=== PATIENT | female | born 1955 | race African-American/Black ===

== ENCOUNTER → 2016-03-30 | Day surgery (SDC) | payer OTHER ==
[~2016-03-30] MED LIST: ADVIL200 M1 PO; ALBUTEROL17 GM INH; ANEXSIA 5/325 M1 TA1 PO; AUGMENTIN PO; AZATHIOPRINE50 M1 PO; AZULFIDINE ENT500 MG PO; AZULFIDINE PO; B-12500 MCG PO; BENTYL10 M1 PO; BENTYL10 MG; BENTYL10 MG PO; DIPHENHYDRAMINE25 M1 PO; HM COMPLETE WO1 EACH PO; IMURAN50 MG PO; LEVAQUIN PO; LISINOPRIL20 MG PO; NAPROXEN SODIU550 MG PO; OMEPRAZOLE40 M1 PO; ONDANSETRON HCL4 M1 PO; OXYCODONE-APAP1 EACH PO; PERCOCET 10/3251 TAB PO; PERCOCET10 PO; PREDNISONE10 MG PO; PRILOSEC40 MG PO; PROMETHAZINE D118 ML PO; SULFASALAZINE500 M1 PO; SULFASALAZINE500 M2 PO; VICODIN PO; [UNRECOGNIZED DRUG - OTHER] TOP
--- NOTE | ~2016-03-30 | OR ---
Unit #: [id number] #: [id number] Patient: DIGNA GLOVER [id number] [facility]. [place], [place] [address] [id number] O MR#: [id number] NAME: DIGNA GLOVER ROOM: Date of Procedure: 03/30/2016 Admission Date: 03/30/2016 Surgeon: Keith Lin M.D. : 1955 Attending Physician: Keith Lin M.D. Primary Care Physician: [facility] OPERATIVE REPORT PRIMARY CARE PHYSICIAN [facility]. PREOPERATIVE DIAGNOSES The patient has history of Crohn's colitis and has presented with a generalized abdominal pain. PROCEDURES PERFORMED 1. Colonoscopy and polypectomy. 2. Colonoscopy and biopsies. POSTOPERATIVE DIAGNOSES The overall changes are consistent with distal Crohn's colitis in remission. The patient had single sessile polyp in the sigmoid colon about 5 mm in size. This was removed using snare polypectomy. In addition, multiple biopsies were obtained from the right colon, transverse colon, descending, and sigmoid colon, and rectum. The rest of the mucosa other than the mucosa throughout was normal including the terminal ileum. The quality of the prep was excellent. There were some patchy redness in the sigmoid and rectosigmoid area and in the sigmoid colon related to previous episodes of Crohn's colitis. RECOMMENDATIONS The patient will be followed up in the office in 3 months' time. SEDATION USED MAC. DESCRIPTION OF PROCEDURE Following detailed explanation of potential risks and complications of a colonoscopy, namely perforation, bleeding, and complication related to sedation, the patient was brought to GI lab and laid in the left lateral decubitus position. A digital rectal examination was performed which was normal. Lubricated tip of the Olympus video colonoscope was inserted through the anus and advanced under direct vision. The scope was advanced past rectosigmoid into descending colon. Minimal erythema and patchy blotchy erythema was noted in this area. No diverticulosis was seen. The scope tip was then navigated all the way up to cecum with visualization of the ileocecal valve and the appendiceal orifice. Preparation was excellent with good visualization and photodocumentation was obtained. Last several inches of the terminal ileum also visualized after intubation of the ileocecal valve and appeared normal. Successive segments of the Unit #: [id number] #: [id number] Patient: DIGNA GLOVER colonic mucosa were examined upon withdrawal and appeared unremarkable except for the changes noted in the rectum and sigmoid colon earlier. Biopsies were obtained from the right colon and the cecum, from the transverse colon, as well as from the left colon, and descending colon, and sigmoid, as well as from the rectosigmoid and sent in separate bottles for histology to look for any evidence of dysplasia. A single sessile polyp about 5 mm in size was removed from the sigmoid colon using snare polypectomy. It was retrieved and sent for histology. The patient did not have any diverticulosis nor any hemorrhoids. The scope was then withdrawn and the patient returned to the recovery area. She tolerated the procedure without any postprocedure complications. Dictated by... Pop Guevara TD: 03/30/2016 16:29 JOB #: [id number] CC: [facility] OPERATIVE REPORT X Keith Lin MD X PROCEDURE OPERATIVE NOTE
== END | disposition home or self-care (01) ==
LOC: COPS 13:24
DX: K50.10 Crohn's disease of large intestine without complications (principal); D12.5 Benign neoplasm of sigmoid colon; K21.9 Gastro-esophageal reflux disease without esophagitis; I10 Essential (primary) hypertension; F17.200 Nicotine dependence, unspecified, uncomplicated; J31.0 Chronic rhinitis; Z87.440 Personal history of urinary (tract) infections; M19.90 Unspecified osteoarthritis, unspecified site
CPT/HCPCS: 88305; J2250

== ENCOUNTER → 2016-04-26 | Outpatient (CLI) | payer OTHER ==
--- NOTE | ~2016-04-26 | MR164 ---
[facility] A Service of [facility] & [facility] RADIOLOGY TEXT RESULTS PATIENT: DIGNA GLOVER LOCATION: [facility] : 55 UNIT #: [id number] AGE: [address]: Austyn Coffey MD SEX: F ORDER DR: [id number] [facility] [address] [place], [place] [address] [id number] O MR#: [id number] Acc #: [id number] NAME: DIGNA GLOVER : 1955 SEX: F STUDY DATE/TIME: 04/26/2016 17:41 UNIT: [facility] ROOM: STUDY DESCRIPTION: MR Shoulder Wo Contrast Lt Attending Physician: Austyn Coffey M.D. Referring Physician: Austyn Coffey M.D. Ordering Physician: uAstyn Coffey M.D. Primary Care Physician: Kiley Not Listed MRI CENTER REPORT This report is preliminary unless electronic signature is present. EXAM MRI left shoulder, 04/26/2016. COMPARISON Left shoulder radiographs, 02/14/2016. HISTORY Order states evaluate rotator cuff, pain. History sheet states left shoulder pain since the end of January 2016. Patient fell a couple of times and ran into a wall. Left shoulder surgery November 2015. Ran into a wall 1 1/2 years ago. Dislocated since January. FINDINGS No operative documentation is available. The exam is degraded with repeat and blade motion correction sequences performed. There is minimal AC joint hypertrophic arthrosis with minimal spurring and capsuloligamentous thickening. There is no evidence of superimposed recent injury. Coracoclavicular ligament complex appears intact. There is a hypertrophic pseudoarthrosis at the coracoclavicular interval of doubtful significance. There is mild supraspinatus and infraspinatus tendinosis without a tear. Teres minor tendon is intact. There is moderate subscapularis tendinosis without a full-thickness tear. Biceps anchor and biceps tendon are normal. There is slight posterior humeral subluxation relative to the central glenoid without dislocation. This may be accentuated by slight internal rotation of the humeral head and may be of no significance. There is mild glenohumeral arthrosis with areas of moderate grade humeral and glenoid chondromalacia, osteophyte formation, and subarticular cystic changes of STS. [facility] A Service of [facility] & [facility] RADIOLOGY TEXT RESULTS PATIENT: DIGNA GLOVER LOCATION: [facility] : 55 UNIT #: [id number] AGE: [address]: Austyn Coffey MD SEX: F ORDER DR: the inferior glenoid. There is a mild glenohumeral effusion without any sizable loose body. There is no marrow lesion or fracture. No muscle atrophy is noted. IMPRESSION 1. Rotator cuff tendinosis without a tear most prominently affects the subscapularis tendon. 2. Minimal AC joint arthrosis. 3. Fscz-if-wprdwqun glenohumeral arthrosis with a mild effusion. 4. Mild posterior humeral head subluxation relative to the central glenoid may be accentuated by slight humeral head internal rotation. There is no MR evidence for a recent dislocation. 5. Biceps and labrum are grossly intact on this motion degraded exam. Dictated by... Ciara Hernandez M.D. THIS IS AN ELECTRONICALLY VERIFIED REPORT Ciara Hernandez M.D. at 04/29/2016 1:13 PM FRANCIS/justin TD: 04/27/2016 15:00 JOB #: [id number] MRI CENTER REPORT COPY
== END | disposition home or self-care (01) ==
LOC: CMRI 17:06
DX: M25.512 Pain in left shoulder (principal); M75.92 Shoulder lesion, unspecified, left shoulder; M19.012 Primary osteoarthritis, left shoulder; S43.022A Posterior subluxation of left humerus, initial encounter
CPT/HCPCS: 73221

== ENCOUNTER 2016-06-16 23:59 | Emergency (ER) | payer OTHER ==
[~2016-06-16 23:59] MED LIST changes: -ALBUTEROL17 GM INH; -DIPHENHYDRAMINE25 M1 PO; -IMURAN50 MG PO; -LEVAQUIN PO; -NAPROXEN SODIU550 MG PO; -ONDANSETRON HCL4 M1 PO; -PERCOCET10 PO; -PROMETHAZINE D118 ML PO; -SULFASALAZINE500 M1 PO
[2016-06-17 01:32] LABS: BASOPHIL% 0.6 % (0-2.5); DIFF IND YES; EOSINOPHIL# 0.2 X10e3 (0-0.7); EOSINOPHIL% 2.8 % (0.0-7.0); HEMATOCRIT 42.1 % (35.0-45.0); HEMOGLOBIN 13.8 gm/dL (12.0-16.0); LYMPHOCYTE% 55.4 % (17.0-45.0); MEAN CELL VOLUME 98.9 FL (83-96); MEAN CORPUSCULAR HEMOGLOBIN 32.4 PG (28-34); MEAN CORPUSCULAR HGB CONC 32.8 g/dL (30-36); MEAN PLATELET VOLUME 9.4 FL (6.5-11.5); MONOCYTE# 0.5 X10e3 (0-1.0); MONOCYTE% 7.6 % (3.0-12.0); NEUTROPHIL# 2.4 X10e3 (1.5-7.1); NEUTROPHIL% 33.6 % (40-75); PLATELET COUNT 150 X10e3 (140-420); RED BLOOD COUNT 4.26 X10e (3.90-5.30); RED CELL DISTRIBUTION WIDTH 13.4 % (11.0-15.5); WHITE BLOOD COUNT 7.2 X10e3 (4.0-10.5)
[2016-06-17 01:50] LABS: ALKALINE PHOSPHATASE 87 U/L (32-92); ALT (SGPT) 15 U/L (10-40); AMYLASE 22 U/L (0-46); AST (SGOT) 16 U/L (10-42); BILIRUBIN,TOTAL 0.5 mg/dL (0.2-2.0); BLOOD UREA NITROGEN 10 mg/dL (9-23); CALCIUM SERUM 9.4 mg/dL (8.4-10.2); CARBON DIOXIDE 26 mmol/L (22-31); CHLORIDE 108 mmol/L (100-111); CREATININE SERUM 0.8 mg/dL (0.6-1.4); GLUCOSE FASTING 79 mg/dL (70-110); LIPASE 22 U/L (22-51); POTASSIUM 3.8 mmol/L (3.5-5.1); PROTEIN TOTAL SERUM 7.1 g/dL (6.0-8.3); SODIUM 142 mmol/L (135-145)
[2016-06-17 02:16] LABS: BILIRUBIN, DIRECT <0.1 mg/dL (0.0-0.2); BILIRUBIN,INDIRECT 0.4 mg/dL (0.0-0.9)
[2016-06-17 02:58] LABS: PLATELET ESTIMATE DECREASED (NORMAL); RBC NORMAL YES
[2016-06-26] MEDS ORDERED: LEVAQUIN PO (13:01)
== END 2016-06-17 03:30 | disposition home or self-care (01) ==
LOC: CED 23:59
PROVIDERS: Emergency Medicine
DX: R10.9 Unspecified abdominal pain (principal); I10 Essential (primary) hypertension; F17.200 Nicotine dependence, unspecified, uncomplicated
CPT/HCPCS: 36415; 80048; 80076; 82150; 83690; 85025; 99284

== ENCOUNTER → 2016-06-26 | Outpatient (CLI) | payer OTHER ==
[~2016-06-26] MED LIST changes: +ALBUTEROL17 GM INH; +DIPHENHYDRAMINE25 M1 PO; +IMURAN50 MG PO; +LEVAQUIN PO; +NAPROXEN SODIU550 MG PO; +ONDANSETRON HCL4 M1 PO; +PERCOCET10 PO; +PROMETHAZINE D118 ML PO; +SULFASALAZINE500 M1 PO
--- NOTE | ~2016-06-26 | CR63 ---
[facility] A Service of [facility] & [facility] RADIOLOGY TEXT RESULTS PATIENT: DIGNA GLOVER LOCATION: [facility] : 55 UNIT #: [id number] AGE: [address]: Austyn Coffey MD SEX: F ORDER DR: [id number] [facility] [address] [place], [place] [address] [id number] O MR#: [id number] Acc #: [id number] NAME: DIGNA GLOVER : 1955 SEX: F STUDY DATE/TIME: 06/26/2016 14:10 UNIT: [facility] ROOM: STUDY DESCRIPTION: CR Chest 2 View Attending Physician: Austyn Coffey M.D. Ordering Physician: Austyn Coffey M.D. Primary Care Physician: Generic Doctor Not In System MEDICAL IMAGING REPORT This report is preliminary unless electronic signature is present EXAM chest PA and lateral 06/26/2016 HISTORY Osteoarthritis left shoulder, preop left reversed total shoulder arthroplasty. Benign essential hypertension. FINDINGS The heart is normal in size. The lungs are clear. There are no pleural effusions. IMPRESSION No active pulmonary disease Dictated by... Bashir Wilson M.D. THIS IS AN ELECTRONICALLY VERIFIED REPORT Bashir Wilson M.D. at 06/28/2016 7:46 AM LEAH/william TD: 06/27/2016 13:51 JOB #: [id number] MEDICAL IMAGING REPORT Page 1 of 1 COPY
--- NOTE | ~2016-06-26 | CR229 ---
[facility] A Service of [facility] RADIOLOGY TEXT RESULTS PATIENT: DIGNA GLOVER LOCATION: [facility] : 55 UNIT #: [id number] AGE: [address]: Austyn Coffey MD SEX: F ORDER DR: [id number] [facility] [address] [place], [place] [address] [id number] O MR#: [id number] Acc #: [id number] NAME: DIGNA GLOVER : 1955 SEX: F STUDY DATE/TIME: 06/26/2016 14:22 UNIT: [facility] ROOM: STUDY DESCRIPTION: CR Shoulder Min 2 View Lt Attending Physician: Austyn Coffey M.D. Ordering Physician: Austyn Coffey M.D. Primary Care Physician: Generic Doctor Not In System MEDICAL IMAGING REPORT This report is preliminary unless electronic signature is present EXAM Two views shoulder. HISTORY Osteoarthritis left shoulder, preop left reverse total shoulder arthroplasty torn rotator cuff fell into a brick wall, August 08, 2015 FINDINGS 2 views of the left shoulder demonstrate no fracture. The bones are osteopenic. The left acromioclavicular and glenohumeral joints are intact. There is no soft tissue abnormality. Minimal osteophytic spurring is seen along the medial aspect of the left humeral head and along the inferior aspect of the glenoid. IMPRESSION Degenerative change and osteopenia. No evidence of fracture Dictated by... Bashir Wilson M.D. THIS IS AN ELECTRONICALLY VERIFIED REPORT Bashir Wilson M.D. at 06/28/2016 7:46 AM LEAH/le TD: 06/27/2016 13:45 JOB #: [id number] MEDICAL IMAGING REPORT Page 1 of 1 COPY
[2016-06-26 12:56] LABS: URINE APPEARANCE CLEAR; URINE BILIRUBIN NEG (NEG); URINE BLOOD 1+ (NEG); URINE COLOR DK YELLOW; URINE GLUCOSE NEG (NEG); URINE KETONE NEG (NEG); URINE LEUKOCYTE ESTERASE 1+ (NEG); URINE NITRATE NEG (NEG); URINE PROTEIN NEG (NEG); URINE SPECIFIC GRAVITY 1.021 (1.003-1.035)
[2016-06-26 12:58] LABS: CULTURE INDICATED? YES; URINE BACTERIA AUWI NEG (NEGATIVE); URINE SQUAMOUS EPITHELIAL CELL OCC /[HPF]
[2016-06-26 13:00] LABS: URINE SOURCE CLEAN CATCH
[2016-06-26 13:07] LABS: PROTHROMBIN TIME (PATIENT) 10.6 SECONDS (9.6-11.5)
[2016-06-26 14:00] LABS: CALCIUM SERUM 9.5 mg/dL (8.4-10.2); CREATININE SERUM 0.7 mg/dL (0.6-1.4); GLOM FILT RATE Estimated 109.1 mL/min (>60); HEMATOCRIT 41.8 % (35.0-45.0); HEMOGLOBIN 13.3 gm/dL (12.0-16.0); MEAN CELL VOLUME 99.9 FL (83-96); MEAN CORPUSCULAR HEMOGLOBIN 31.8 PG (28-34); MEAN CORPUSCULAR HGB CONC 31.8 g/dL (30-36); POTASSIUM 3.6 mmol/L (3.5-5.1); RED BLOOD COUNT 4.19 X10e (3.90-5.30); RED CELL DISTRIBUTION WIDTH 13.2 % (11.0-15.5); WHITE BLOOD COUNT 4.6 X10e3 (4.0-10.5)
== END | disposition home or self-care (01) ==
LOC: CAMB 11:58
PROVIDERS: Orthopaedic Surgery
DX: Z01.818 Encounter for other preprocedural examination (principal); M19.012 Primary osteoarthritis, left shoulder; M85.812 Other specified disorders of bone density and structure, left shoulder; I10 Essential (primary) hypertension
CPT/HCPCS: 36415; 71020; 73030; 80048; 81003; 85027; 85610; 86850; 86900; 86901; 87070; 87086

== ENCOUNTER 2016-06-28 11:07 | Inpatient (IN) | payer OTHER ==
--- NOTE | ~2016-06-28 | OR ---
Unit #: [id number] #: [id number] Patient: DIGNA DENSON [id number] [address] [place], [place] [address] [id number] I MR#: [id number] NAME: DIGNA DENSON ROOM: 452 Date of Procedure: 06/28/2016 Admission Date: 06/28/2016 Surgeon: Austyn Coffey M.D. : 1955 Attending Physician: Austyn Coffey M.D. Primary Care Physician: Generic Doctor Not In System OPERATIVE REPORT PREOPERATIVE DIAGNOSIS Left shoulder rotator cuff arthropathy. POSTOPERATIVE DIAGNOSIS Left shoulder rotator cuff arthropathy. PROCEDURE PERFORMED Left reverse total shoulder arthroplasty. 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 ANESTHESIA General endotracheal. COMPLICATIONS None. SPECIMENS None. DRAINS None. SURGICAL IMPLANTS Ammon reverse total shoulder arthroplasty system size 12 stem with +3 mm polyethylene liner. Standard base plate and glenosphere. Palacos cement for the humeral stem. INDICATION FOR PROCEDURE Ms. Denson is a 60-year-old female, the patient of mine, who has had prior rotator cuff surgery and persistent pain with limited overhead mobility. She has done extensive physical therapy without improvement. She continues to have pain and has failed to respond to conservative treatment including cortisone injections. The patient was presented with the options. She wished to proceed with elective reverse total shoulder arthroplasty. Risks, benefits, and alternatives of surgery were discussed with the patient. Informed consent was obtained. Risks include, but not limited to, infection, bleeding, nerve injury, blood clots, risks associated with anesthesia, and need for further surgery. DESCRIPTION OF PROCEDURE Unit #: [id number] #: [id number] Patient: DIGNA DENSON On 06/28/2016, the patient was seen in the preoperative holding area, where her surgical site was marked. Preoperative antibiotics were received. H and P and consent updated. Preoperative block performed. She was taken to the operating room and provided general anesthesia. She was carefully moved to the beach-chair position. Left upper extremity was prepped and draped in typical sterile fashion. Time-out performed confirming the correct surgical site and procedure. At this point, a standard deltopectoral approach was made to the left shoulder. Cephalic vein was taken laterally with the deltoid. The clavipectoral fascia was taken down. A deltoid retractor placed. Shoulder externally rotated. Subscapularis taken down just medial to the bicipital groove. The rotator cuff was tagged. The shoulder was externally rotated. Degenerative changes of the glenohumeral joint noted. Starting reamer placed on central point of the humeral head. Sequential reaming was taken up to 13 mm. The jig was placed and humeral head cut was made with 20 degrees of retroversion. Retractors were then placed around the glenoid. Just before this, the trial stem was placed. Next, the retractors were placed around the glenoid. The glenoid cartilage scraped off. The starting pin placed on the slightly inferior side of the glenoid in the central portion with a tilt up toward the head. This was approximately 10 degrees. Sequential reaming was placed over this. Once trabecular bone was noted, the base plate was placed. The bone was very soft. The base plate did not hold well on press-fit. At this point, bone graft was taken from the humeral head and packed back into the peg hole. The base plate again was placed. Two screws were placed with good purchase locking the base plate. Once this was stable, the glenosphere was placed. Another 2 mm was then cut off the proximal humeral cut to aid in mobility and reduction. Once this was completed, the stem again was placed and the shoulder was reduced. Due to significant osteopenia, it was felt cementing would aid in healing and prevention of fracture. Cement was mixed on the back table. This was Palacos R+G cement. Cement restrictor was placed and the canal was prepared. Cement was placed in the canal followed by placement of the humeral stem. Careful attention to retroversion noted. Excess cement removed. Once hardened, a +3 trial liner was placed. Shoulder was reduced. This was felt to be stable with full motion. The final liner was placed. The wound was thoroughly irrigated with the remainder of 3 L normal saline containing bacitracin. The subscapularis had been tagged and was repaired back to the holes in the stem along the lesser tuberosity location. The interval was also closed with 0 Vicryl suture. The biceps had been tenotomized. There was a tear in the cephalic vein that was cauterized. At this point, the deltopectoral groove was repaired with 0 Vicryl followed by 2-0 Vicryl for subcutaneous tissues and a running subcuticular Monocryl stitch for the skin. Dermabond, Telfa, Tegaderm were placed. A sling immobilizer was placed. The patient was subsequently awakened from general anesthesia in stable condition and taken to PACU postoperatively. POSTOPERATIVE PLAN The patient will be admitted overnight for pain control. She will be possibly discharge in the morning. She will have 24-hour antibiotic protocol. She will be on Lovenox for DVT prophylaxis. She will have SCDs. No complications encountered during the surgical procedure. Dictated by... Pop Denney/mounika Unit #: [id number] #: [id number] Patient: DIGNA DENSON TD: 06/29/2016 01:54 JOB #: [id number] OPERATIVE REPORT Page 1 of 1 X X PROCEDURE OPERATIVE NOTE
--- NOTE | ~2016-06-28 | DS ---
Unit #: [id number] #: [id number] Patient: DIGNA GLOVER [id number] [address] [address] [id number] I MR#: [id number] NAME: DIGNA GLOVER ROOM: 45 Age: 60 Sex: F Admission Date: 06/28/2016 : 1955 Discharge Date: 06/30/2016 Attending Physician: Austyn Coffey M.D. Primary Care Physician: Generic Doctor Not In System DISCHARGE SUMMARY DISCHARGE DIAGNOSIS Left shoulder arthritis, status post reverse total shoulder arthroplasty, 06/28/2016. DISCHARGE MEDICATIONS The patient will be restarted on all of her home medications. Her Percocet will be changed to 10/325 mg, one half to one tab p.o. q.3 hours p.r.n. pain, #60. DETAILS OF HOSPITAL STAY The patient had surgery on the afternoon of 06/28/2016. Surgery was uneventful. She did well. She worked well with physical therapy. Pain was controlled and she was felt to be stable for discharge home on 06/30/2016. DISPOSITION Home. DISCHARGE INSTRUCTIONS 1. The patient will be discharged home. 2. She will be non-weight bearing on the left upper extremity. 3. She will do pendulums and elbow motion for the left upper extremity. 4. She will keep the dressing on the left shoulder until followup. She can shower and get it wet. 5. She will call the office with any questions or concerns. Dictated by... Austyn Coffey M.D. LUANA/tomás TD: 06/30/2016 11:15 JOB #: [id number] Unit #: [id number] #: [id number] Patient: DIGNA GLOVER DISCHARGE SUMMARY Page 1 of 1 X X DISCHARGE SUMMARY
--- NOTE | ~2016-06-28 | CR229 ---
[facility] A Service of [facility] & [facility] RADIOLOGY TEXT RESULTS PATIENT: DIGNA GLOVER LOCATION: [place] [address]- : 55 UNIT #: [id number] AGE: [address]: Austyn Coffey MD SEX: F ORDER DR: [id number] [facility] [address]. [place], [place] [address] [id number] I MR#: [id number] Acc #: [id number] NAME: DIGNA GLOVER : 1955 SEX: F STUDY DATE/TIME: 06/28/2016 17:29 UNIT: [facility] ROOM: [facility] STUDY DESCRIPTION: CR Shoulder Min 2 View Lt Attending Physician: Austyn Coffey M.D. Ordering Physician: Austyn Coffey M.D. Primary Care Physician: Generic Doctor Not In System MEDICAL IMAGING REPORT This report is preliminary unless electronic signature is present EXAM Left shoulder HISTORY Postop total shoulder. TECHNIQUE 2 views of the shoulder were obtained. FINDINGS 2 views of the shoulder shows satisfactory alignment and position across a shoulder prosthesis. No immediate postoperative complications are seen. Dictated by... Roger Esteban M.D. THIS IS AN ELECTRONICALLY VERIFIED REPORT Roger Esteban M.D. at 06/29/2016 10:03 AM DYANA/kathy TD: 06/29/2016 00:42 JOB #: [id number] MEDICAL IMAGING REPORT Page 1 of 1 COPY
[~2016-06-28 11:07] MED LIST changes: -ALBUTEROL17 GM INH; -DIPHENHYDRAMINE25 M1 PO; -IMURAN50 MG PO; -NAPROXEN SODIU550 MG PO; -ONDANSETRON HCL4 M1 PO; -PERCOCET10 PO; -PROMETHAZINE D118 ML PO; -SULFASALAZINE500 M1 PO
[2016-06-28] MEDS ORDERED: NAPROXEN SODIU550 MG PO (12:59)
[2016-06-28] MEDS ORDERED: BENTYL10 MG PO (12:59)
[2016-06-28] MEDS ORDERED: ALBUTEROL17 GM INH (13:00)
[2016-06-28] MEDS ORDERED: PROMETHAZINE D118 ML PO (13:01)
[2016-06-28] MEDS ORDERED: DIPHENHYDRAMINE25 M1 PO (13:26)
[2016-06-28] MEDS ORDERED: SULFASALAZINE500 M1 PO (14:24)
[2016-06-28] MEDS ORDERED: LISINOPRIL20 MG PO (14:25)
[2016-06-28] MEDS ORDERED: ONDANSETRON HCL4 M1 PO (14:25)
[2016-06-28] MEDS ORDERED: IMURAN50 MG PO (14:26)
[2016-06-28] MEDS ORDERED: OXYCODONE-APAP1 EACH PO (14:27)
[2016-06-29 03:26] LABS: BASOPHIL% 0.2 % (0-2.5); EOSINOPHIL% 0.1 % (0.0-7.0); HEMOGLOBIN 11.1 gm/dL (12.0-16.0); LYMPHOCYTE# 1.6 X10e3 (1.0-3.5); LYMPHOCYTE% 18.8 % (17.0-45.0); MEAN CELL VOLUME 99.3 FL (83-96); MEAN CORPUSCULAR HEMOGLOBIN 31.6 PG (28-34); MEAN CORPUSCULAR HGB CONC 31.9 g/dL (30-36); MEAN PLATELET VOLUME 9.1 FL (6.5-11.5); MONOCYTE# 0.7 X10e3 (0-1.0); MONOCYTE% 8.2 % (3.0-12.0); NEUTROPHIL% 72.7 % (40-75); PLATELET COUNT 138 X10e3 (140-420); RED BLOOD COUNT 3.52 X10e (3.90-5.30); WHITE BLOOD COUNT 8.3 X10e3 (4.0-10.5)
[2016-06-29 03:33] LABS: DIFF IND NO
[2016-06-29 03:46] LABS: CALCIUM SERUM 8.5 mg/dL (8.4-10.2); GLOM FILT RATE Estimated 70.9 mL/min (>60); POTASSIUM 3.8 mmol/L (3.5-5.1)
[2016-06-30 04:20] LABS: EOSINOPHIL% 0.2 % (0.0-7.0); HEMATOCRIT 31.3 % (35.0-45.0); HEMOGLOBIN 10.2 gm/dL (12.0-16.0); LYMPHOCYTE# 2.2 X10e3 (1.0-3.5); LYMPHOCYTE% 23.8 % (17.0-45.0); MEAN CELL VOLUME 98.7 FL (83-96); MEAN CORPUSCULAR HEMOGLOBIN 32.1 PG (28-34); MEAN CORPUSCULAR HGB CONC 32.5 g/dL (30-36); MEAN PLATELET VOLUME 9.6 FL (6.5-11.5); MONOCYTE% 10.4 % (3.0-12.0); NEUTROPHIL# 6.1 X10e3 (1.5-7.1); NEUTROPHIL% 65.6 % (40-75); PLATELET COUNT 124 X10e3 (140-420); RED BLOOD COUNT 3.17 X10e (3.90-5.30); WHITE BLOOD COUNT 9.3 X10e3 (4.0-10.5)
[2016-06-30 04:30] LABS: DIFF IND NO
[2016-06-30 04:42] LABS: GLOM FILT RATE Estimated 70.9 mL/min (>60); POTASSIUM 3.8 mmol/L (3.5-5.1)
[2016-06-30] MEDS ORDERED: PERCOCET10 PO (10:11)
== END 2016-06-30 10:49 | disposition home health service (06) | DRG 483 ==
LOC: CSUR 11:07 → CPACUOF 11:08 → CSUR 11:47 → CPACUOF 11:47 → CSUR 12:30 → C4B 18:40 → CPACUOF 18:40 → C4B 06-30 10:49
PROVIDERS: Orthopaedic Surgery
PROC: 0RRK00Z Replacement of Left Shoulder Joint with Reverse Ball and Socket Synthetic Substitute, Open Approach (ICD-10-PCS; principal; 2016-06-28 13:30)
DX: M75.102 Unspecified rotator cuff tear or rupture of left shoulder, not specified as traumatic (principal); F17.210 Nicotine dependence, cigarettes, uncomplicated; Z88.0 Allergy status to penicillin; Z90.710 Acquired absence of both cervix and uterus
CPT/HCPCS: 73030; 80048; 85025; 94760; 97110; 97116; 97161; 97530; C1713; C1776; J0131; J0330; J1100; J1170; J1650; J2405; J2710; J2795; J3010; J3370